=== PATIENT | male | born 1945 | race Caucasian/White ===

== ENCOUNTER 2023-11-25 12:34 | Outpatient (CLI) | payer OTHER, MEDICARE, SELFPAY ==
--- NOTE | 2023-11-25 12:54 | ECG_ITS ---
Test Date: 2023-11-25 13:12:39 Measurements Intervals [place] Rate: 55 P: -30 IA: 216 QRS: -37 QRSD: 134 T: 17 QT: 396 QTc: 379 Interpretive Statements SINUS BRADYCARDIA WITH SINUS ARRHYTHMIA WITH FIRST DEGREE AV BLOCK LEFT AXIS DEVIATION INTRAVENTRICULAR CONDUCTION DELAY BORDERLINE R WAVE PROGRESSION, ANTERIOR LEADS LEFT VENTRICULAR HYPERTROPHY AND ST-T CHANGE HIGH LATERAL INFARCT, AGE INDERTERMINATE ABNORMAL ECG No previous ECG available for comparison Electronically Signed On 11-25-2023 13:14:47 CDT by Sudhir Horton D.O.
[2023-11-25 14:26] LABS: Anion Gap 7 mmol/L (4-12); Blood Urea Nitrogen 19 mg/dL (9-20); Calcium 8.3 mg/dL (8.4-10.2); Carbon Dioxide 27 mmol/L (22-30); Chloride 101 mmol/L (98-107); Estimated Glomerular Filt Rate > 60; Glucose 97 mg/dL (65-110); Potassium 4.3 mmol/L (3.4-5.0); Sodium 135 mmol/L (137-145)
== END 2023-11-25 12:35 | disposition home or self-care (01) ==
LOC: ANHSURGERY 12:41
PROVIDERS: Anesthesiology; PCP Pediatrics; Visit Provider Otolaryngology
DX: Z01.812 Encounter for preprocedural laboratory examination (principal); I10 Essential (primary) hypertension; I49.8 Other specified cardiac arrhythmias; I44.0 Atrioventricular block, first degree; I45.89 Other specified conduction disorders; R94.31 Abnormal electrocardiogram [ECG] [EKG]; Z51.81 Encounter for therapeutic drug level monitoring
CPT/HCPCS: 36415; 80048; 93005

== ENCOUNTER 2023-11-29 01:33 | Day surgery (SDC) | payer OTHER, MEDICARE, SELFPAY ==
[2023-11-19 15:18] VITALS: BMI 33.8
--- NOTE | 2023-11-19 15:44 | PC.NURSE ---
Report to the Outpatient Waiting Room, entrance under the green pavilion located off [facility], at time _8:00AM_ on date _11/29/23_. Planned Procedure Time: _10:00AM_.? Time changes happen often and if your time is changed the preop area will call you the afternoon before. - You and your visitor will be asked to self-screen and do not enter if you have any COVID symptoms. Please call surgeon if you need to reschedule. - A mask is optional within the hospital at this time. Patients may have clear liquids (water, carbonated beverages, clear teas, apple juice) until 3 hours prior to surgery with a maximum of 20 ounces. - No food from midnight until time of surgery and no smoking. Take only the following medications with a SIP of water on the morning of surgery: ___BUPROPION, BUSPIRONE, PRIMIDONE DO NOT STOP ANY OF YOUR OTHER PRESCRIPTION MEDICATIONS PRIOR TO SURGERY EXCEPT THE FOLLOWING Medications to discontinue per physician ____HOLD ASPIRIN 7 DAYS PRE-OP PER DR CERDA Date to take last dose 11/21/23 Please no make-up, nail slovak, hairspray, perfume, deodorant, or body powder the day of surgery.? No jewelry (including any body piercings) or valuables the day of surgery, leave them at home.? Please take a shower or bath the night before, or the morning of, surgery with an antibacterial soap.? Wear comfortable, loose fitting clothing.? - Jewelry must be removed prior to entering the operating room.? Rings and piercings that are not removed may be cut off. - The hospital will not accept responsibility for valuables.? - Please leave all valuables, including medications, at home the day of surgery. If you are going home after surgery, a licensed driver merchandiser must drive you home.? - NO public transportation without another adult if you receive anesthesia. - We recommend that an adult stay with you for 24 hours following discharge. - We also recommend that you do not drive, make important decision, drink alcoholic beverages, or take any drugs that were not prescribed by your health care provider for at least 24 hours after your discharge time. Follow any additional instructions given to you from your surgeon. Telephone instructions given to PATIENT and asked if any additional questions and then verbalized understanding. Patient advised to call surgeon office or pre surgery nurse liaison [phone] if any additional questions.
--- NOTE | 2023-11-19 15:48 | PC.NURSE ---
Report to the Outpatient Waiting Room, entrance under the green pavilion located off [facility], at time _8:00AM_ on date _11/29/23_. Planned Procedure Time: _10:00AM_.? Time changes happen often and if your time is changed the preop area will call you the afternoon before. - You and your visitor will be asked to self-screen and do not enter if you have any COVID symptoms. Please call surgeon if you need to reschedule. - A mask is optional within the hospital at this time. Patients may have clear liquids (water, carbonated beverages, clear teas, apple juice) until 3 hours prior to surgery with a maximum of 20 ounces. - No food from midnight until time of surgery and no smoking. Take only the following medications with a SIP of water on the morning of surgery: __BUPROPION, BUSPIRONE, PRIMIDONE, LEVOTHYROXINE DO NOT STOP ANY OF YOUR OTHER PRESCRIPTION MEDICATIONS PRIOR TO SURGERY EXCEPT THE FOLLOWING Medications to discontinue per physician ___HOLD ASPIRIN 7 DAYS PRE-OP PER DR RIOS Date to take last dose 11/21/23 Please no make-up, nail [place]ank[place], hairspray, perfume, deodorant, or body powder the day of surgery.? No jewelry (including any body piercings) or valuables the day of surgery, leave them at home.? Please take a shower or bath the night before, or the morning of, surgery with an antibacterial soap.? Wear comfortable, loose fitting clothing.? - Jewelry must be removed prior to entering the operating room.? Rings and piercings that are not removed may be cut off. - The hospital will not accept responsibility for valuables.? - Please leave all valuables, including medications, at home the day of surgery. If you are going home after surgery, a licensed class b driver must drive you home.? - NO public transportation without another adult if you receive anesthesia. - We recommend that an adult stay with you for 24 hours following discharge. - We also recommend that you do not drive, make important decision, drink alcoholic beverages, or take any drugs that were not prescribed by your health care provider for at least 24 hours after your discharge time. Follow any additional instructions given to you from your surgeon. Telephone instructions given to PATIENT and asked if any additional questions and then verbalized understanding. Patient advised to call surgeon office or pre surgery nurse liaison [phone] if any additional questions.
[2023-11-29] VITALS (8 sets, daily range): BP systolic 132–149; BP diastolic 53–90; PULSE 56–68; RESP 12–18; TEMP 36.3–36.4; O2SAT 96–100
--- NOTE | 2023-11-29 07:08 | WPDHPUPDATE1 ---
History and Physical Update Update Date/Time: 11/29/23 07:08 History and Physical has been reviewed, including an updated exam of the patient. There are NO changes in the patient's condition. Risks, benefits, and alternatives have been discussed and questions answered. Patient agrees to proceed with procedure.
[2023-11-29] MEDS: LACTATED RINGERS 1,000 ML 30 ML IV CONT ×2 (07:48→11:36)
[2023-11-29] MEDS: ACETAMINOPHEN 500 MG TABLET 1000 MG PO (08:23)
[2023-11-29] MEDS: OXYMETAZOLINE HCL 0.05% NAS 15 ML BTL (*BKC) 1 SPRAY NASAL (08:35)
--- NOTE | 2023-11-29 09:26 | P.HP_ITS ---
H&P: HPI History of Present Illness Date/Time: 11/29/23 09:26 Chief Complaint: polyps Review of Systems Review of Systems: All systems reviewed & are unremarkable except as noted in HPI and below [facility] Social History Social History Smoking packs per day: 1 Smoking cigarettes per day: 20.0 Years smoked: 20 Smoking pack-years: 20.00 Smoking status: Former smoker Tobacco type: cigarettes Smoking end date: 09/06/71 Alcohol intake: current Drinks per week: 3 Living arrangements: with family Additional living arrangements comments: [facility] Spiritual care concerns: No Meds Home Medications and Allergies Home Medications Medication Instructions Recorded Confirmed Type aspirin 81 mg tablet,delayed 81 mg PO DAILY 11/19/23 11/29/23 History release atorvastatin 40 mg tablet 40 mg PO 11/19/23 11/29/23 History bupropion HCl 300 mg 24 hr tablet, 300 mg PO QAM 11/19/23 11/29/23 History extended release buspirone 15 mg tablet 15 mg PO BID 11/19/23 11/29/23 History dupilumab 300 mg/2 mL subcutaneous 300 mg subcut [id number] 11/19/23 11/29/23 History pen injector (Dupixent) fluticasone propionate 50 2 spray intranasal DAILY 11/19/23 11/29/23 History mcg/actuation nasal spray,suspension losartan 25 mg tablet 25 mg PO QAM 11/19/23 11/29/23 History primidone 50 mg tablet (Mysoline) 150 mg PO BID 11/19/23 11/29/23 History tamsulosin 0.4 mg capsule 0.4 mg PO 11/19/23 11/29/23 History triamterene 37.5 1 cap PO QA 11/19/23 11/29/23 History mg-hydrochlorothiazide 25 mg capsule levothyroxine 25 mcg capsule 25 mcg PO DAILY 11/22/23 11/29/23 History pantoprazole 40 mg tablet,delayed 40 mg PO DAILY 11/22/23 11/29/23 History release Allergies Allergy/AdvReac Type Severity Reaction Status Date / Time Sulfa (Sulfonamide AdvReac Unknown VISUAL Verified 11/29/23 08:05 Antibiotics) DISTURBANCES, OTHER UNKNOWN REACTION codeine AdvReac Nausea and Verified 11/29/23 08:06 Vomiting Vital Signs Vital Signs - 24 hr 11/29/23 08:04 Temperature 36.4 C Pulse Rate 59 L Respiratory Rate 18 Blood Pressure 137/90 Pulse Oximetry 100 Oxygen Delivery Room Air Exam Narrative: bilateral polyps, rest of exam wnl Assessment and Plan Assessment and plan (1) Nasal polyposis: Code(s): J33.9 - Nasal polyp, unspecified Status: Acute Assessment and Plan: BIlateral nasal polyposis, hx of FESS x2. Here for revision sinus surgery, possible septoplasty, image guided. r/b/a reviewed, all questions answered, pt understands and agrees to proceed. refer to outpt H&P for further details.
--- NOTE | 2023-11-29 09:36 | WPDANESEPPF ---
Anes - Initial Pre Proc Eval Procedure: Operation Date: 11/29/23 10:00 Proposed Procedures p Fusion Guided Bilateral Frontal Sinusotomy, Bilateral Ethmoidectomy, Bilateral Maxillary Antrostomy, Bilateral Turbinate Outfracture, - Je Almonte MD s Possible Septoplasty - Je Almonte MD Date/Time: 11/29/23 09:36 Surgeon: Je Almonte MD Pre Op Diagnosis: nasal polyps Patient Data Age: 78 Gender: M Height: 1.78 m Weight: 105.3 kg Last Vital Signs Temp 36.4 C 11/29/23 08:04 Pulse 59 L 11/29/23 08:04 Resp 18 11/29/23 08:04 BP 137/90 11/29/23 08:04 Pulse Ox 100 11/29/23 08:04 O2 Del Method Room Air 11/29/23 08:04 Allergies Allergy/AdvReac Type Severity Reaction Status Date / Time Sulfa (Sulfonamide AdvReac Unknown VISUAL Verified 11/29/23 08:05 Antibiotics) DISTURBANCES, OTHER UNKNOWN REACTION codeine AdvReac Nausea and Verified 11/29/23 08:06 Vomiting Home Medications Medication Instructions Recorded Confirmed Type aspirin 81 mg tablet,delayed 81 mg PO DAILY 11/19/23 11/29/23 History release atorvastatin 40 mg tablet 40 mg PO HS 11/19/23 11/29/23 History bupropion HCl 300 mg 24 hr tablet, 300 mg PO QAM 11/19/23 11/29/23 History extended release buspirone 15 mg tablet 15 mg PO BID 11/19/23 11/29/23 History dupilumab 300 mg/2 mL subcutaneous 300 mg subcut [id number] 11/19/23 11/29/23 History pen injector (Dupixent) fluticasone propionate 50 2 spray intranasal DAILY 11/19/23 11/29/23 History mcg/actuation nasal spray,suspension losartan 25 mg tablet 25 mg PO QAM 11/19/23 11/29/23 History primidone 50 mg tablet (Mysoline) 150 mg PO BID 11/19/23 11/29/23 History tamsulosin 0.4 mg capsule 0.4 mg PO HS 11/19/23 11/29/23 History triamterene 37.5 1 cap PO QAM 11/19/23 11/29/23 History mg-hydrochlorothiazide 25 mg capsule levothyroxine 25 mcg capsule 25 mcg PO DAILY 11/22/23 11/29/23 History pantoprazole 40 mg tablet,delayed 40 mg PO DAILY 11/22/23 11/29/23 History release Patient hx anesthesia problems: other (myalgias) Family hx anesthesia problems: none Results Review: All pre-operative results and documents have been reviewed as part of the pre-operative evaluation. [facility] Social History Social History Smoking packs per day: 1 Smoking cigarettes per day: 20.0 Years smoked: 20 Smoking pack-years: 20.00 Smoking status: Former smoker Tobacco type: cigarettes Smoking end date: 09/06/71 Alcohol intake: current Drinks per week: 3 Living arrangements: with family Additional living arrangements comments: [facility] Spiritual care concerns: No Anes - Eval Final PreProcedure Day of Procedure 11/29/23 09:36 Patient weight: obese Heart: regular rate and rhythm Lungs: clear to auscultation Airway: Mallampati scale class II Neurological: alert and oriented Last oral intake: >/= 8 hours ASA classification: III Emergent: no Anesthetic plan: proceed Anesthesia type and monitoring: general ETT and standard monitoring Results Review: All pre-operative results and documents have been reviewed as part of the pre-operative evaluation. Informed Consent: The patient's anesthetic plan and its attendant risks and benefits were discussed with the patient/family/POA. Questions were solicited and answers provided to the satisfaction of the patient/family/POA.
[2023-11-29] MEDS: ceFAZolin 2 GM/D5W 50 ML 2 GM/50 ML BAG IVPB (09:45)
[2023-11-29] MEDS: LIDO 1%/EPINEPHRINE 1:100,000 50 ML VIAL INFILTRATE (10:42)
--- NOTE | 2023-11-29 10:50 | W.PM.PROC2 ---
Procedure Note - Detailed Date of Procedure 11/29/23 Pre-op Diagnosis nasal polyps Post-op Diagnosis Same Procedure Performed Bilateral frontal sinusotomy, total ethmoidectomy, maxillary antrostomy w/ tissue removal, turbinoplasty, image guided surgery Surgeon Je Almonte MD Anesthesia General Indications Nasal polyposis, chronic sinusitis Findings Bilateral large obstructive nasal polyps, infection in bilateral maxillary sinuses, polyps extending into frontal sinuses. Nasopore bilaterally Description of Procedure On the date of procedure the patient was met in the preoperative area and risk and benefits of the procedure reviewed with the patient as documented in the H&P and they elected to proceed with surgery. Patient was brought back to the operating room by the anesthesia team and underwent general endotracheal anesthesia. Once an adequate plane of anesthesia was obtained a timeout was performed to assure the patient identification the patient here to be performed were correct. They were.The patient was then prepped and draped in the normal fashion for endoscopic sinus surgery. The diffusion image guidance system was calibrated and used for the entire case. Afrin-soaked pledgets were placed in the nasal cavities bilaterally. The entire case was performed under endoscopic visualization. Nasal endoscopy was performed at the beginning of the case. 1% lidocaine with 1:100,000 epinephrine was then injected into the root of the middle turbinate and lateral nasal wall. Attention was first directed towards the right side. The middle turbinate was medialized and the osteomeatal complex was identified with a noah probe. Using a 90 degree backbiter, the uncinate process was reflected anteriorly and removed using a combination of sharp and powered dissection. The maxillary antrostomy was then created and widened by identifying the natural ostia and opening the sinus with straight shanti-cut forceps, backbiter, and microdebrider. Polyp tissue encountered was removed with microdebrider. Purulent fluid was within the right maxillary sinus. Continuing with the microdebrider, the anterior ethmoid bulla was opened. Careful dissection was carried out posteriorly, through the basal lamella and posterior ethmoid cells until the sphenoid rostrum was identified. Using an image guided curved suction as well as J-curette, the posterior most ethmoid cell was identified and the ethmoids were bluntly fractured and dissected from posterior to anterior along the base of the skull. The remaining bone fragments were removed with appropriate curved instruments and microdebrider. Next, The left maxillary antrostomy, ethmoidectomy were carried out in identical fashion with findings of gross polyp disease throughout. Upon completion of these portions of the procedure, attention was returned to the right side. The frontal recess was identified, with gross polyp disease obstructing and removed. Image guided seeker confirmed proper identification of the frontal recess. This was repeated on the left side. With all sinuses opened and no remaining polyp disease appreciated, nasopore packing was placed in the ethmoid acvities bilaterally. Hemostasis was ensured. Lastly, the bilateral inferior turbinates were reduced submucosally using 2mm microdebrider and then outfractured with a sayer elevator. This significantly opened the airway. At this point, the procedure was concluded. Care the patient was transferred back to the anesthesia team and the patient was awoke in the operating room and transferred back to the PACU in stable condition. Je Almonte M.D. Estimated Blood Loss 100 Drains No Packing Yes (nasopore bilaterally) Pathology None sent Complications No immediate complications Condition Stable Disposition PACU
== END 2023-11-29 12:35 | disposition home health service (06) ==
PROVIDERS: PCP Pediatrics; Visit Provider Otolaryngology
PROC: (CPT 31253; principal; 2023-11-29 10:00)
DX: J33.8 Other polyp of sinus (principal); J32.0 Chronic maxillary sinusitis; J33.9 Nasal polyp, unspecified; E66.9 Obesity, unspecified; Z68.33 Body mass index [BMI] 33.0-33.9, adult; Z79.82 Long term (current) use of aspirin; Z79.85 Long-term (current) use of injectable non-insulin antidiabetic drugs; Z87.891 Personal history of nicotine dependence
CPT/HCPCS: 31253; 31267; 30140; 61782; A9270; J0690; J1100; J1596; J2371; J2405; J2704; J3010; J7050; J7120